=== PATIENT | female | born 1960 | race Caucasian/White ===

== ENCOUNTER 2020-09-30 21:17 | Emergency (ER) | payer OTHER ==
[~2020-09-30] VITALS: Ht 165.1 cm; Wt 70.3 kg
[2020-09-30] MEDS ORDERED: TRAM50TA4 PO (23:47)
[2020-09-30] MEDS ORDERED: DOXY100C PO (23:47)
[2020-10-01] MEDS ORDERED: KETOROLAC 30MG VIAL (30MG/ML) IM ONE
[2020-10-01 00:09] VITALS: BP 139/85
== END 2020-10-01 00:11 | disposition home or self-care (01) ==
LOC: EDH 21:17
DX: L02.01 Cutaneous abscess of face (principal); Z79.899 Other long term (current) drug therapy; Z79.1 Long term (current) use of non-steroidal anti-inflammatories (NSAID)
CPT/HCPCS: 96372; 99283; J1885